=== PATIENT | male | born 1955 | race Caucasian/White ===

== ENCOUNTER 2018-08-23 05:32 | Day surgery (SDC) ==
[2018-08-12 09:28] LABS: HEMATOCRIT 48.8 % (42.0-52.0); HEMOGLOBIN 16.9 g/dL (14.0-18.0); MCH 33.9 PG (27-31); MCHC 34.6 g/dL (33-37); MCV 97.8 FL (81-99); MPV 10.1 FL (7.4-10.4); RBC 4.99 XMIL (4.7-6.1); RDW 12.1 % (11.5-14.5); WBC 10.2 X1000 (4.8-10.8)
[2018-08-12 10:08] LABS: AGAP 10; BUN 18 mg/dL (8-22); CALCIUM 8.9 mg/dL (8.8-10.2); CHLORIDE 102 mmol/L (98-107); COSMO 280; CREATININE 1.1 mg/dL (0.7-1.2); ESTIMATED GFR > 60; GLUCOSE 105 mg/dL (70-104); POTASSIUM 4.2 mmol/L (3.5-5.1); SODIUM 139 mmol/L (136-145); TCO2 27 mmol/L (25-35)
--- NOTE | 2018-08-12 10:28 | EKG Report ---
Test Performed on : 08/12/2018 09:09:06 AM Test Reason : PAT Blood Pressure : / mmHG Vent. Rate : 068 BPM Atrial Rate : 068 BPM P-R Int : 166 ms QRS Dur : 084 ms QT Int : 412 ms P-R-T Axes : 070 -12 024 degrees QTc Int : 438 ms Sinus rhythm. with premature atrial complexes. in a pattern of bigeminy. Inferior infarct , age undetermined Abnormal ECG When compared with ECG of 30-MAY-2014 08:51, premature atrial complexes. are now present Inferior infarct is now present Confirmed by Jose QUEEN, Isaias Hodges ([id number]) on 08/12/2018 11:39:55 AM
[2018-08-23] MEDS ORDERED: KEFZOL 1 GM/D5W 2 GM/100 ML IVPB ONE (05:41)
[2018-08-23] MEDS ORDERED: LR 1,000 ML ONE ×3 (05:41→12:30)
[2018-08-23] MEDS ORDERED: REGLAN ONE (05:41)
[2018-08-23] MEDS ORDERED: PEPCID ONE (05:41)
[2018-08-23] MEDS ORDERED: VERSED ONE (06:12)
[2018-08-23] MEDS ORDERED: XYLOCAINE-MPF 2% ONE (06:12)
[2018-08-23] MEDS ORDERED: DIPRIVAN 1% ONE (06:12)
[2018-08-23] MEDS ORDERED: FENTANYL ONE (06:13)
[2018-08-23] MEDS ORDERED: B & O 15A SUPP ONE (06:28)
[2018-08-23] MEDS ORDERED: MARCAINE 0.25% PF/EPI 1:200,000 ONE (06:28)
[2018-08-23] MEDS ORDERED: ATROPINE ONE (07:20)
[2018-08-23] MEDS ORDERED: DECADRON ONE (07:21)
[2018-08-23] MEDS ORDERED: ZOFRAN ONE (07:21)
[2018-08-23] MEDS ORDERED: EPHEDRINE ONE (07:25)
[2018-08-23] MEDS ORDERED: OFIRMEV 1000 MG/ISOTONIC SOLN 1,000 MG/100 ML BOTTLE ONE (07:37)
[2018-08-23] MEDS ORDERED: NORCURON ONE (09:06)
[2018-08-23] MEDS ORDERED: ROBINUL ONE ×2 (09:31→13:46)
[2018-08-23] MEDS ORDERED: NEOSTIGMINE ONE (09:31)
[2018-08-23 12:29] LABS: URINE SOURCE CATH
[2018-08-23 12:36] LABS: BILIRUBIN URINE NEGATIVE (NEGATIVE); BLOOD URINE NEGATIVE (NEGATIVE); COLOR STRAW; GLUCOSE URINE NEGATIVE (NEGATIVE); KETONE URINE NEGATIVE (NEGATIVE); LEUKOCYTES URINE NEGATIVE (NEGATIVE); NITRITE URINE NEGATIVE (NEGATIVE); PROTEIN URINE NEGATIVE (NEGATIVE); TURBIDITY URINE CLEAR (CLEAR); UR EPITHELIAL CELLS <10 /HPF (<10); URINE BACTERIA NEGATIVE /HPF; URINE WBC <10 /HPF (<10); UROBILINOGEN URINE NORMAL (NORMAL)
[2018-08-23] MEDS: DILAUDID ONE ×4 (12:58→13:11)
--- NOTE | 2018-08-23 13:11 | OPERATIVE NOTE ---
PROCEDURE DATE: 08/23/2018 SURGEON: Dr. Ulysses Rai MD CAT TENDER SURGEON: Dr. Watson PROCEDURE PERFORMED: Laparoscopic robot-assisted radical retropubic prostatectomy and bilateral pelvic lymph node dissection. ANESTHESIA: General endotracheal. FINDINGS: Enlarged prostate that was smooth with normal seminal vesicles and ampulla vas deferens. The external iliac and obturator nodes were not prominent. INDICATIONS FOR PROCEDURE: This 62-year-old male has a history of elevated PSA. 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 After treatment of prostate cancer was discussed with the patient, he decided on radical surgery. DESCRIPTION OF PROCEDURE: After informed consent was obtained from the patient and him receiving IV antibiotics, he was taken to the main OR, and placed in the supine position. General endotracheal anesthesia was achieved. He was then placed in the low lithotomy position and prepped and draped in the usual sterile fashion for abdominal, penile, scrotal and perineal surgery. After prepping, an 18-Ivorian Spicer catheter was passed through the patient's urethra, and through the prostate and bladder without difficulty. 10 mL of sterile water placed in Spicer's balloon. The Spicer was placed to gravity drain. An incision was made just above the umbilicus for the 12 mm camera port. The pneumoperitoneum was achieved with the Veress needle after the water drop test was normal. The abdomen was insufflated to 15 cm of water with CO2. After the abdomen was insufflated, the Visiport was used to place the 12 mm camera port. The camera was placed and the robot trocars were placed in their standard position with the #3 arm just above the right anterior superior iliac spine, and the web press operator assistant port in the left epigastric area. This was a 12 mm port. The bed was lowered all the way and placed in steep Trendelenburg. The robot was docked. The patient had significant physiologic adhesions. These were taken down, and also noted were bilateral inguinal hernias. These also were reduced without difficulty. The procedure was then started by incising the peritoneum about 1 cm above where it reflected off the rectum. This was taken down to the seminal vesicles and ampulla of the vas deferens. The artery of the vas deferens was cauterized and the vas deferens incised. The seminal vesicles were bluntly and sharply dissected free. The pedicle to the seminal vesicle was taken down with a clip. The seminal vesicles and ampulla was completely freed. Both sides were accomplished similarly. Denonvilliers fascia was entered in the midline, and dissected laterally for a short distance on each side. Attention was then turned to the anterior abdominal wall. The medial umbilical ligament was retracted medially. An incision was made just medial to the internal inguinal ring. The incision was taken down to the vas deferens and up onto the anterior abdominal wall. Both sides were accomplished similarly. The medial umbilical ligaments were incised on the anterior abdominal wall as well as the median umbilical ligament. This allowed the bladder to be bluntly and sharply dissected off the anterior abdominal wall. All fibrofatty tissue from the endopelvic fascia was removed. The endopelvic fascia was entered, and the incision was taken back to the base of the prostate and up to the puboprostatic ligaments. The levator ani muscles were pushed off the sides of the prostate from the base all the way to the apex. The puboprostatic ligaments were taken down sharply, and again both sides were accomplished similarly. An 0 V-Loc suture was then passed under the dorsal vein complex, and through the eye of the suture and pulled tight. It was passed back under the dorsal vein complex, and then through the periosteum of the pubis, back under the dorsal vein complex, and then back through the periosteum of the pubis. The needle was removed from the suture, and passed out of the body. After the dorsal vein complex was secured, an incision was made on the proximal anterior surface of the prostate. The bladder was sharply dissected off the base of the prostate. The bladder was entered. The Spicer catheter was brought up through the cystotomy, and used as a traction device. The remaining part of the bladder was sharply dissected off of the base of the prostate. The prostate was significantly enlarged, and the trigone area was entered at one small spot as the bladder was dissected off the base of the prostate. This was secured with a [id number] suture of 2-0 Vicryl. The previously dissected space where the seminal vesicles and ampulla of vas were located was entered, and the bladder was dissected over to its pedicles on each side. The ampulla and vas deferens were brought up through the cystotomy and used as a traction device. The pedicles were taken down with clips, and dissected all the way to the apex of the prostate on both sides. The prostate appeared very smooth posteriorly. After this was accomplished, attention was then turned to the apex of the prostate where the apex was sharply dissected down to the urethra. The urethra was incised approximately 2 mm distal to the apex of the prostate. The remaining tissue that was securing the prostate was incised, and the prostate was placed on the side of the pelvis to allow the lymph node dissection to be done. The lymph node dissection was first performed on the left side. The boundaries were the medial surface of the external iliac vein. The distal margin was the node of [place], and this was dissected down into the pelvis to the obturator nerve, and then up the obturator nerve to the bifurcation of the external and internal iliac veins. Hemostasis and lymphostasis was achieved with clips and cautery. The specimen was sent to Pathology in its own container. At completion, the Surgicel snow was packed in this fossa. Both sides were accomplished similarly. The vesicovisceral fascia was attached to the posterior rhabdosphincter with a running suture of 3-0 V-Loc suture. The needles were not removed from this suture as it is a double arm suture, and these were laid to the side. The bladder was anastomosed to the urethra with a running 3-0 V-Loc suture. After the anastomosis was complete, a 16-Ivorian Spicer catheter was passed through the patient's urethra and bladder without difficulty. The Spicer balloon was inflated, and the bladder irrigated without difficulty. No leakage was seen. The Spicer was placed to gravity drain. The suture that was used to anastomose the vesicovisceral fascia to the posterior rhabdosphincter was then passed through the periosteum of the pubis, one on the left side and one on the right side and this acted as a urethral suspension. The needles were removed and passed out of the body. All needle counts were correct. The pneumoperitoneum was reduced to 3 cm of water, and no bleeding areas were seen. The specimen was placed in an EndoCatch retrieval bag, and the retrieval string was brought out through the camera port. Pneumoperitoneum was resolved. All trocars were removed. The camera port incision was extended for a distance of about 4 cm. This allowed the large prostate to be removed. A suture was placed at the bladder neck. The abdominal rectus fascia was reapproximated with interrupted sutures of #1 Maxon suture. The skin was reapproximated with skin clips. Island dressings were placed. A B O suppository was placed at the end of the case. He tolerated the procedure well. Estimated blood loss less than 50 mL. He was taken to recovery room in good condition. cc: Ulysses Rai MD
[2018-08-23] MEDS ORDERED: DUONEB (A & A) ONE (13:19)
[2018-08-23] MEDS ORDERED: SODIUM CHLORIDE 0.9% INJ PRN (15:45)
[2018-08-23] MEDS ORDERED: NS 1,000 ML IV SCH (15:45)
[2018-08-23] MEDS ORDERED: OXY IR PO PRN ×2 (15:45)
[2018-08-23] MEDS ORDERED: BENADRYL LIQUID PO PRN (15:45)
[2018-08-23] MEDS ORDERED: LABETALOL IV PRN (15:45)
[2018-08-23] MEDS ORDERED: DITROPAN PO PRN (15:45)
[2018-08-23] MEDS ORDERED: PHENERGAN IV PRN (15:45)
[2018-08-23] MEDS ORDERED: OFIRMEV 1000 MG/ISOTONIC SOLN 1,000 MG/100 ML BOTTLE IV PRN (15:45)
[2018-08-23] MEDS: KEFZOL 1 GM/D5W 1 GM/50 ML IVPB IV SCH ×2 (16:55→22:26)
[2018-08-23] MEDS: LR 1,000 ML IV SCH (19:14)
[2018-08-23] MEDS ORDERED: PNEUMOVAX 23 IM ONE (19:30)
[2018-08-23] MEDS: COLACE PO SCH (22:26)
[2018-08-23] MEDS: PERIDEX MT SCH (22:27)
[2018-08-23] MEDS: PEPCID PO SCH (22:27)
[2018-08-24] MEDS: KEFZOL 1 GM/D5W 1 GM/50 ML IVPB IV SCH (00:19)
[2018-08-24] MEDS: LR 1,000 ML IV SCH (06:14)
[2018-08-24 06:29] LABS: HEMATOCRIT 45.2 % (42.0-52.0); HEMOGLOBIN 15.2 g/dL (14.0-18.0); MCH 34.1 PG (27-31); MCHC 33.6 g/dL (33-37); MCV 101.3 FL (81-99); MPV 10.1 FL (7.4-10.4); RBC 4.46 XMIL (4.7-6.1); RDW 12.5 % (11.5-14.5); WBC 17.19 X1000 (4.8-10.8)
[2018-08-24 06:50] LABS: SODIUM 135 mmol/L (136-145)
[2018-08-24 06:51] LABS: AGAP 8; BUN 11 mg/dL (8-22); CALCIUM 8.7 mg/dL (8.8-10.2); CHLORIDE 99 mmol/L (98-107); COSMO 271; CREATININE 1.2 mg/dL (0.7-1.2); ESTIMATED GFR > 60; GLUCOSE 118 mg/dL (70-104); POTASSIUM 4.6 mmol/L (3.5-5.1); TCO2 28 mmol/L (25-35)
[2018-08-24 07:43] VITALS: BP 173/88
[2018-08-24] MEDS: PERIDEX MT SCH (08:54)
[2018-08-24] MEDS: PEPCID PO SCH (08:55)
[2018-08-24] MEDS: COLACE PO SCH (08:55)
[2018-08-24] MEDS ORDERED: PROSCAR PO SCH (09:00)
[2018-08-24] MEDS ORDERED: NORVASC PO SCH (09:00)
[2018-08-24] MEDS ORDERED: HYDROCHLOROTHIAZIDE PO SCH (09:00)
[2018-08-24] MEDS ORDERED: AVAPRO PO SCH (09:00)
[2018-08-24] MEDS ORDERED: TOPROL XL PO SCH (09:00)
[2018-08-24] MEDS ORDERED: ZETIA PO SCH (09:00)
== END 2018-08-24 10:41 | disposition home or self-care (01) ==
LOC: OR 05:32 → 4N 05:32 → OR 08-24 10:41
PROVIDERS: ATTEND Urology
CPT/HCPCS: 80048; 81001; 85027; 88307; 88309; 88313; 90732; 93005; 93010; A9270; J0131; J0461; J0690; J1100; J1170; J2250; J2405; J3010; J7030; J7120; S0138; S2900